=== PATIENT | male | born 1955 | race American Indian/Alaskan Native ===

== ENCOUNTER 2021-11-11 17:36 | Emergency (ER) | payer MEDICARE ==
--- NOTE | 2021-11-11 19:26 | Emergency Department Report ---
ED Fall HPI - General Chief Complaint: Fall Stated Complaint: BACK PAIN/FALL X 2 DAYS Time Seen by Provider: 11/11/21 19:21 Source: patient, EMS Mode of arrival: Stretcher - History of Present Illness Initial Comments: Patient is 66-year-old male with history of COPD, hypertension, colon cancer. Patient brought to the emergency room via EMS from a local half-way for evaluation after a fall that happened 3 days ago. Patient tripped and fell backward. Patient is complaining of lower back pain bilateral hip pain and bilateral knee pain. Patient and half-way denied any head injury. No loss of consciousness. 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 denies: headache, neck pain, numbness, weakness, chest paint, shortness of breath, abdominal pain, hematuria, unable to walk, lightheaded, vertigo, confusion - Related Data Allergies Allergy/AdvReac Type Severity Reaction Status Date / Time No Known Allergies Allergy Verified 11/11/21 18:58 ED Review of Systems ROS: Stated complaint: BACK PAIN/FALL X 2 DAYS Other details as noted in HPI Comment: All other systems reviewed and negative Constitutional: denies: chills, fever Respiratory: denies: cough, shortness of breath, SOB with exertion, SOB at rest Cardiovascular: denies: chest pain, palpitations Gastrointestinal: denies: abdominal pain, nausea, vomiting, diarrhea, constipation, hematemesis, hematochezia Musculoskeletal: back pain, arthralgia Neurological: denies: headache, weakness ED Past Medical Hx - Past Medical History Hx Hypertension: Yes Hx COPD: Yes Additional medical history: ETOH abuse. hypomagnesemia - Social History Smoking Status: Former Smoker ED Physical Exam - General Limitations: No Limitations General appearance: alert, in no apparent distress - Head Head exam: Present: atraumatic, normocephalic, normal inspection - Eye Eye exam: Present: normal appearance - ENT ENT exam: Present: normal exam, normal orophraynx, mucous membranes moist - Neck Neck exam: Present: normal inspection, full ROM. Absent: tenderness, meningismus - Respiratory Respiratory exam: Present: normal lung sounds bilaterally - Cardiovascular Cardiovascular Exam: Present: regular rate, normal rhythm, normal heart sounds - GI/Abdominal GI/Abdominal exam: Present: soft, normal bowel sounds. Absent: distended, tenderness, guarding, rebound, rigid - Back Exam Back exam: Present: paraspinal tenderness - Neurological Exam Neurological exam: Present: alert, oriented X3 - Psychiatric Psychiatric exam: Present: normal mood ED Course Vital Signs 11/11/21 11/11/21 18:39 18:49 Temperature 98.3 F 97.0 F L Pulse Rate 64 91 H Respiratory 16 20 Rate Blood Pressure 143/76 Blood Pressure 126/76 [Right] O2 Sat by Pulse 100 100 Oximetry ED Medical Decision Making - Radiology Data Radiology results: report reviewed - Medical Decision Making Patient is 66-year-old male with history of COPD, hypertension, colon cancer. Patient brought to the emergency room via EMS from a local half-way for evaluation after a fall that happened 3 days ago. Patient tripped and fell backward. Patient is complaining of lower back pain bilateral hip pain and bilateral knee pain. Patient and half-way denied any head injury. No loss of consciousness. X-ray of bilateral hip and bilateral knee showed no acute fracture or dislocation. X-ray of the lumbosacral spine showed L1 mild compression fracture. Patient given prescription for pain medicine and advised to follow-up with orthopedics in the next 2 to 3 days and to return to the ER if develop any new symptoms. Critical care attestation.: If time is entered above; I have spent that time in minutes in the direct care of this critically ill patient, excluding procedure time. ED Disposition Clinical Impression: Fall, Vertebral fracture, closed Disposition: 03 [facility] Is pt being admited?: No Condition: Stable Instructions: Fall Prevention in the Home, Adult, [id number], Lumbar Spine Fracture Referrals: ARMANDO MEYER MD [Primary Care Provider] - 3-5 Days AUDIE JORDAN MD [Staff Physician] - 3-5 Days
--- NOTE | 2021-11-11 20:33 | XRay Report ---
Bilateral hips 3 views INDICATION: Lateral hip pain following injury IMPRESSION: No fracture or subluxation is identified although the patient is moderately osteopenic. T here is mild osteopenia. A large urinary bladder calculus projects within the right lower aspect of t he urinary bladder. Signer Name: Abraham Thorpe MD Signed: 11/11/2021 8:29 PM Workstation Name: [email or web address]
--- NOTE | 2021-11-11 20:33 | XRay Report ---
Knees bilateral 3 views INDICATION: Bilateral knee pain IMPRESSION: No fracture or subluxation identified. Mild degenerative changes of both knees present. Signer Name: Abraham Thorpe MD Signed: 11/11/2021 8:29 PM Workstation Name: [employer]
--- NOTE | 2021-11-11 20:34 | XRay Report ---
Lumbar spine 2 views INDICATION: Low back pain following injury IMPRESSION: there is loss of vertebral body height involving the L1 vertebral body concerning for mil d compression fracture. Mild multilevel discogenic and facet arthropathy causing mild bilateral neura l foraminal narrowing at L5-S1. Signer Name: Abraham Thorpe MD Signed: 11/11/2021 8:30 PM Workstation Name: [email or web address]
[2021-11-11] MEDS ORDERED: ONDANSETRON 4 MG/2 ML INJ IM ONE (20:41)
[2021-11-11] MEDS ORDERED: MORPHINE 4 MG/1 ML INJ IM ONE (20:41)
[2021-11-12] MEDS ORDERED: MORPHINE 4 MG/1 ML INJ IM ONE (00:45)
[2021-11-12] MEDS ORDERED: ONDANSETRON 4 MG/2 ML INJ IM ONE (00:45)
[2021-11-12 01:01] VITALS: BP 137/67
[2021-11-12] MEDS ORDERED: KETOROLAC 30 MG/1 ML INJ IM ONE (01:38)
== END 2021-11-12 01:49 ==
LOC: ED 17:36
DX: S32.009A Unspecified fracture of unspecified lumbar vertebra, initial encounter for closed fracture (principal); I10 Essential (primary) hypertension; Z87.891 Personal history of nicotine dependence; W19.XXXA Unspecified fall, initial encounter; Y93.89 Activity, other specified; Y92.89 Other specified places as the place of occurrence of the external cause; Y99.8 Other external cause status
CPT/HCPCS: 72100; 73521; 73562; 96372; 99283; J1885; J2270; J2405